=== PATIENT | male | born 1975 | race Caucasian/White ===

== ENCOUNTER 2016-07-26 13:49 | Emergency (ER) | payer OTHER ==
[~2016-07-26] VITALS: Ht 180.3 cm; Wt 79.4 kg
[~2016-07-26 13:49] MED LIST: ASPIRIN325 MG PO; FLEXERIL10 MG PO; LORTAB 5-325 M1 EACH PO; PRILOSEC20 MG PO; TOPROL XL50 MG PO; TRAMADOL HCL50 MG PO; TYLENOL EXTRA500 MG PO
[2016-07-26] MEDS ORDERED: PRADAXA75 MG PO (14:52)
[2016-07-26] MEDS ORDERED: TYLENOL WITH C1 EACH PO (16:18)
[2016-07-26 16:57] VITALS: BP 130/84
== END 2016-07-26 16:57 | disposition home or self-care (01) ==
LOC: EME 13:49
DX: S20.212A Contusion of left front wall of thorax, initial encounter (principal); W23.0XXA Caught, crushed, jammed, or pinched between moving objects, initial encounter; Y93.89 Activity, other specified; Z88.6 Allergy status to analgesic agent; Z91.013 Allergy to seafood
CPT/HCPCS: 71101; 99281; 99284

== ENCOUNTER 2016-11-24 08:56 | Emergency (ER) | payer OTHER ==
[~2016-11-24] VITALS: Ht 180.3 cm; Wt 82.1 kg
[~2016-11-24 08:56] MED LIST changes: +PRADAXA75 MG PO; +TYLENOL WITH C1 EACH PO
[2016-11-24 11:11] VITALS: BP 123/78
== END 2016-11-24 11:12 | disposition home or self-care (01) ==
LOC: EME 08:56
DX: S30.1XXA Contusion of abdominal wall, initial encounter (principal); W51.XXXA Accidental striking against or bumped into by another person, initial encounter; Y93.61 Activity, american tackle football; I48.0 Paroxysmal atrial fibrillation; Z79.82 Long term (current) use of aspirin
CPT/HCPCS: 74176; 99281; 99284